=== PATIENT | female | born 1940 | race Caucasian/White ===

== ENCOUNTER → 2016-10-23 | Outpatient (CLI) | payer MEDICARE ==
[~2016-10-23] MED LIST: FLEXERIL10 MG PO; LEVAQUIN250 MG PO; LOMOTIL 2.5MG.2.5 MG PO; LORTAB 5/500 501 TAB PO; MECLIZINE12.5 MG PO; OXAZEPAM10 MG PO
[2016-10-23 16:08] LABS: URINE BILIRUBIN - DIPSTICK NEGATIVE (NEG); URINE BLOOD NEGATIVE (NEG)
[2016-10-23 16:10] LABS: HEMOGLOBIN 14.3 g/dL (12.2-16.2); LYMPH # 2.6 K/mm3 (0.7-4.5); LYMPH % 18.9 % (10-50.0)
[2016-10-23 16:57] LABS: BUN 43 mg/dL (7-18)
[2016-10-23 17:19] LABS: GFR (ESTIMATED) 34 ML/MIN (59-)
[2016-10-25 06:37] LABS: Vitamin D, 25-Hydroxy 37.6 ng/mL (30.0-100.0)
[2016-10-25 08:41] LABS: Creatinine, Urine 38.1 mg/dL (Not Estab.); Microalbumin, Urine 6.4 ug/mL (Not Estab.)
== END ==
LOC: LAB 15:49
PROVIDERS: Internal Medicine Nephrology
DX: N18.3 Chronic kidney disease, stage 3 (moderate) (principal)

== ENCOUNTER → 2017-02-07 | Outpatient (CLI) | payer MEDICARE ==
--- NOTE | 2017-02-15 12:08 | RADIOLOGY REPORT PS360 ---
DIG MAMM-SCREEN AMIE W/CAD CAD Screening ORDERING PHYSICIAN : Sita Vela MD PATIENT AGE: 76 years GENDER: Female COMPARISON: December bilateral mammogram. Mammogram & ultrasound right breast April 2013. Tampon INDICATION: Routine screening patient takingEstradiol. Previous cyst excision left breast with scar lateral left breast history of fibrocystic breast. No new complaints Noncontributory family history TECHNIQUE: Standard CC and MLO images were obtained. R2 CAD reviewed. FINDINGS: Moderately dense breast bilaterally Numerous rounded densities in both breast but most evident throughout the right breast most likely reflecting cyst is seen on previous mammograms and ultrasound from 2013 These are most likely cyst with progression of densities bilaterally, but with last ultrasound in 2013, would recommend follow-up bilateral breast ultrasound particularly in this age patient. Estradiol exogenous hormone influence may contribute to this cyst. . RIGHT BREAST: Numerous densities throughout the breast. These are shown slight progression at the largest cyst labeled a. It measures up to nearly 22 mm and has shown enlargement since 2014. Ovoid area area labeled B likely a cyst slightly larger at the deep inferior central breast.. Slightly ill-defined posterior margin but most likely cyst. Ovoid area labeled C the deep medial left breast cc view with only perhaps incrementally larger. Scattered other smaller rounded densities also noted. Stable to incrementally larger. LEFT BREAST: Progression bilobed likely cyst and now measuring up to 14 mm maximally x 7 mm at the lateral retroareolar region. Labeled X. Other areas left breast appear fairly stable. Mild ductal prominence retroareolar region slightly more apparent. IMPRESSION: Fairly dense inhomogeneous breast bilaterally for age.- Limit mammography. . Slight progression of numerous rounded densities bilaterally. Most likely reflecting progression of numerous bilateral cysts as detailed in text above both breast. These are most likely cyst with progression, but would recommend bilateral breast ultrasound further evaluate in this setting. BI-RADS CATEGORY: 0_Incomplete: Need additional imaging RECOMMENDED FOLLOWUP: USB ULTRASOUND-BREAST BILATERAL (A letter has been sent to the patient regarding results of the study.)
== END ==
LOC: RAD 10:17
DX: Z12.31 Encounter for screening mammogram for malignant neoplasm of breast (principal)
CPT/HCPCS: G0202

== ENCOUNTER → 2017-02-23 | Outpatient (CLI) | payer MEDICARE | LOC: RAD 13:00 | DX: R92.8 Other abnormal and inconclusive findings on diagnostic imaging of breast (principal) | CPT/HCPCS: G0204 ==

== ENCOUNTER → 2017-03-19 | Outpatient (CLI) | payer MEDICARE ==
--- NOTE | 2017-03-27 10:34 | RADIOLOGY REPORT PS360 ---
US BREAST-RT COMPLETE W/AXILLA US CYST ASPIRATION, FNA/W GUIDANCE, Ordering Physician: Rafal Caro MD Patient Age: 76 years: Female history: Rt breast- indeterminate nodule recent ultrasound/mammography workup. Possible cyst versus semisolid nodule now for further evaluation TECHNIQUE: Ultrasound right breast followed by ultrasound-guided cyst aspiration performed by Dr. Villasenor FINDINGS AND PROCEDURE: ULTRASOUND RIGHT BREAST; This indeterminate mildly hypoechoic with echogenic material within it is identified 6 o'clock position near nipple and measures up to 1.05 cm maximum dimension. .. A second smaller 5.5 mm similar hypoechoic area seen just medial to this. These images also determined the best approach for access to perform aspiration biopsy of this nodule.Scanning by Dr. Villasenor Limited ultrasound rescanned] quadrant LEFT BREAST included. The apparent debris-filled cystic areas at 11:00 and 6:00 are less evident today. However note was made of a subtle additional vague slight hyperechoic area just deep to the skin at 1:00 with some scant shadowing. This may reflect the tiny calcification seen at 1:00 on mammography.- Possibly with area of fat necrosis. However would suggest follow-up bilateral ultrasound in 6 months to survey right and left breast RIGHT BREAST ULTRASOUND-GUIDED FNA biopsy/cyst aspiration Following sterile preparation as well as local skin, and cautious deeper placement of Xylocaine anesthetic . I would also the patient received Xanax 1 mg and Lortab5 Prior to the procedure for comfort and mild sedation. Under ultrasound guidance the 21-gauge Chiba biopsy needle, was advanced to the right breast nodule and positioned. Needle tip was observed passing into the nodule. This area was then aspirated to and decreased in size with aspiration. Scant minimal fluid obtained from it. .. . We then moved to the immediate adjacent smaller hypoechoic nodule similar character and it too was aspirated anticipated. These areas are no longer evident on the final ultrasound image right breast. Patient tolerated procedure well. FNA specimen material obtained and subsequently submitted to cytopathology. -------IMPRESSION: ...... 1. RIGHT BREAST. Ultrasound and FNA cyst aspiration There are 2 hypoechoic areas 6:00 breast. Both of these areas aspirated.: The largest measuring just over 10 mm and the other measuring 5.5 mm CYTOPATHOLOGY = benign cyst right breast . Material obtained from these areas demonstrates benign forms cells, ductal groups & apocrine metaplasia compatible with benign cyst.. No malignancy. 2. Limited rescan left breast I would additionally note that we briefly rescanned and surveyed the left breast as well. Debris-filled cystic areas previously questioned a less evident. However we did note a additional subtle hypoechoic area 1:00 with subtle shadowing likely due to tiny calcification. 3.. Bilateral ultrasound 6 months recommended to follow up this patient for this and other features likely benign debris-filled cyst features bilateral . BI-RADS CATEGORY: 3_Probably Benign-Short Term F/U RECOMMENDED FOLLOWUP: 6M -8MONTH FOLLOW-UP bilateral breast ultrasound (A letter has been sent to the patient regarding results of the study.)
== END ==
LOC: RAD 08:47
PROC: 0H9T3ZX Drainage of Right Breast, Percutaneous Approach, Diagnostic (ICD-10-PCS; principal; 2017-03-19)
DX: N63.10 Unspecified lump in the right breast, unspecified quadrant (principal)